=== PATIENT | female | born 1960 | race African-American/Black ===

== ENCOUNTER 2017-02-05 08:26 | Emergency (ER) | payer MEDICAID ==
[~2017-02-05] VITALS: Ht 157.5 cm; Wt 117.0 kg
[2017-02-05 09:40] VITALS: BP 154/86
[2017-02-05 09:41] VITALS: BP 137/91
--- NOTE | 2017-02-05 13:16 | Emergency Room Report ---
History of Present Illness General Chief Complaint: Nosebleed Source: Patient Present Illness HPI 56-year-old female presents to ED complaining of nosebleed. States it started approximately one hour ago while at rest. Lasted for approximately 10 minutes. Patient denies any nosebleed at this time. States she was bleeding from both nostrils. Denies taking blood thinners. Denies any pain. Denies trauma. No other aggravating or relieving factors. Denies any other associated symptoms Allergies: Coded Allergies: No Known Allergies (Unverified , 02/05/17) Patient History Past Medical History: DM Past Surgical History: none Pertinent Family History: none Social History: Denies: alcohol use, drug use, smoking Now: No Immunizations: UTD Reviewed Nursing Documentation: PMH: Agreed, PSxH: Agreed Nursing Documentation-PMH Past Medical History: No History, Except For Hx Diabetes: Yes Review of Systems All Other Systems: negative except mentioned in HPI Physical Exam Vital Signs Date Time Temp Pulse Resp B/P Pulse Ox O2 Delivery O2 Flow Rate FiO2 02/05/17 08:41 97.5 80 16 137/91 95 Room Air Sp02 EP Interpretation: reviewed, normal General Appearance: no apparent distress, alert, GCS 15, non-toxic, obese Head: normocephalic, atraumatic Eyes: bilateral eye PERRL, bilateral eye normal inspection ENT: hearing grossly normal, normal pharynx, no angioedema, normal voice, other - no active bleeding from nares. no blood identified Neck: full range of motion, supple/symm/no masses Respiratory: chest non-tender, lungs clear, normal breath sounds, speaking full sentences Cardiovascular #1: regular rate, rhythm, no edema Cardiovascular #2: 2+ carotid (R), 2+ carotid (L), 2+ radial (R), 2+ radial (L) , 2+ dorsalis pedis (R), 2+ dorsalis pedis (L) Gastrointestinal: normal bowel sounds, non tender, soft, non-distended, no guarding, no rebound Rectal: deferred Genitourinary: normal inspection, no CVA tenderness Musculoskeletal: back normal, gait/station normal, normal range of motion, non- tender Neurologic: alert, oriented x3, responsive, motor strength/tone normal, sensory intact, speech normal Psychiatric: judgement/insight normal, memory normal, mood/affect normal, no suicidal/homicidal ideation Reflexes: 3+ bicep (R), 3+ bicep (L), 3+ tricep (R), 3+ tricep (L), 3+ knee (R) , 3+ knee (L) Skin: normal color, no rash, warm/dry, well hydrated Lymphatic: no adenopathy Medical Decision Making Diagnostic Impression: Primary Impression: Epistaxis ER Course 56-year-old female presents to ED with epistaxis x 10 min. no bleeding at this time Differential-anterior epistaxis, posterior epistaxis, coagulopathy Patient placed on stretcher. After initial history, physical exam reveals a middle aged female in no acute distress. On exam there is no active bleeding from either nostril. There is no blood identified. No blood in the back of the throat. No further intervention required at this time She states she sleeps with pain at full speed. States she drives with air conditioner at full speed. This is likely drying out her nasal passages making her susceptible to nosebleeds. I recommend a humidifier at home Given that patient is not on any blood thinners and there is no active bleeding at this time with stable vitals I believe patient can be discharged Diagnoses- epistaxis Stable and discharged to home. Followup with ENT. Return to ED if symptoms recur or worsen Last Vital Signs Date Time Temp Pulse Resp B/P Pulse Ox O2 Delivery O2 Flow Rate FiO2 02/05/17 09:41 97.5 16 137/91 95 Room Air 02/05/17 09:40 85 Status: improved Disposition: HOME, SELF-CARE Condition: Stable Referrals: [facility],REFERRING (PCP) Fazal Jordan MD, ANDREW Patient Instructions: Nosenataliya, [id number] PRAKASH WONG M.D. February 05, 2017 13:16
== END 2017-02-05 09:58 | disposition home or self-care (01) ==
LOC: EMR 08:57
DX: R04.0 Epistaxis (principal); E11.9 Type 2 diabetes mellitus without complications
CPT/HCPCS: 99282